=== PATIENT | female | born 1955 | race Caucasian/White ===

== ENCOUNTER → 2016-11-18 | Outpatient (CLI) | payer OTHER ==
[~2016-11-18] MED LIST: CEPH-376 PO; CHOL500015 PO; CRANBERRY PO; CYAN1TAB29 PO; DEXA4TAB PO; DILT240C61 PO; DILT240C77 PO; INSU100I18 SQ; INSU300I SQ; MAGN400T7 PO; OMEP20TA62 PO; ONDA4TAB12 PO; OXYC1TAB7 PO; RAMI5CAP PO; [UNRECOGNIZED DRUG - OTHER] SQ
[2016-11-18 13:46] LABS: HEMATOCRIT 41.4 % (34.6-47.8); HEMOGLOBIN 13.6 g/dL (11.7-16.4); WHITE BLOOD COUNT 7.8 x10^3/uL (3.4-10)
[2016-11-18 13:57] LABS: ASPARTATE AMINO TRANSFERASE 12 U/L (15-37); BLOOD UREA NITROGEN 28 mg/dL (7-18)
== END | disposition home or self-care (01) ==
LOC: STAR 12:39
PROVIDERS: ATTEND Specialist
DX: I45.10 Unspecified right bundle-branch block (principal); Z79.01 Long term (current) use of anticoagulants
CPT/HCPCS: 36415; 80053; 85025; 85610; 85730; 86304; 93005

== ENCOUNTER 2016-11-23 05:58 | Day surgery (SDC) | payer OTHER ==
[2016-11-18 13:23] VITALS: BP 169/91
[~2016-11-23] VITALS: Ht 165.1 cm; Wt 91.5 kg
[2016-11-23] MEDS ORDERED: LACTATED RINGERS 1,000 ML IV SCH (06:32)
[2016-11-23] MEDS ORDERED: LIDOCAINE 1%, 2ML ONE (06:34)
[2016-11-23] MEDS ORDERED: BUPIVACAINE/PF 0.25% ONE (06:40)
[2016-11-23] MEDS ORDERED: HEPARIN 1,000 UNITS/ML, 10ML ONE (06:40)
[2016-11-23] MEDS ORDERED: FENTANYL PF 100 MCG/2ML ONE ×2 (06:41→08:38)
[2016-11-23] MEDS ORDERED: MIDAZOLAM 1 MG/ML, 2ML ONE (06:41)
[2016-11-23] MEDS ORDERED: EPINEPHRINE 1 MG/ML, 1ML ONE (06:41)
[2016-11-23] MEDS ORDERED: PROPOFOL 10 MG/ML, 20ML ONE (06:43)
[2016-11-23] MEDS ORDERED: CEFAZOLIN 1,000 MG ONE ×2 (06:43→06:44)
[2016-11-23] MEDS ORDERED: LIDOCAINE 1%, 2ML SQ PRN (07:00)
[2016-11-23] MEDS ORDERED: GLYCOPYRROLATE 0.4 MG/2 ML, 2ML ONE (07:19)
[2016-11-23] MEDS ORDERED: NEOSTIGMINE 1 MG/ML, 10ML ONE (07:19)
[2016-11-23] MEDS ORDERED: ROCURONIUM 10 MG/ML ONE (07:19)
[2016-11-23] MEDS ORDERED: CEFOTETAN PMX 2GM/50ML 50 ML ONE (07:20)
[2016-11-23] MEDS ORDERED: hydrALAzine 20 MG/ML, 1ML IV PRN (07:30)
[2016-11-23] MEDS ORDERED: MEPERIDINE/PF 25MG/0.5ML IVPush PRN (07:30)
[2016-11-23] MEDS ORDERED: PROMETHAZINE 25 MG/ML, 1ML IV PRN (07:30)
[2016-11-23] MEDS ORDERED: OXYcodone 5 MG/5 ML ORAL.SOL UDC PO PRN (07:30)
[2016-11-23] MEDS ORDERED: LABETALOL 5MG/ML, 20ML IV PRN (07:30)
[2016-11-23] MEDS ORDERED: ONDANSETRON 2MG/ML, 2ML IVPush PRN (07:30)
[2016-11-23] MEDS ORDERED: ONDANSETRON 2MG/ML, 2ML ONE (07:53)
[2016-11-23] MEDS ORDERED: PHENYLEPHRINE 10 MG/ML ONE (08:05)
[2016-11-23] MEDS ORDERED: OXYcodone 5 MG/5 ML ORAL.SOL UDC ONE (08:38)
[2016-11-23] MEDS: FENTANYL PF 100 MCG/2ML IV PRN ×2 (08:42→08:58)
[2016-11-23] MEDS ORDERED: HYDROmorphone 1 MG/ML, 1ML ONE (09:10)
[2016-11-23] MEDS: HYDROmorphone 1 MG/ML, 1ML IV PRN ×2 (09:11→09:19)
[2016-11-23] MEDS ORDERED: KETOROLAC 30 MG/1 ML ONE (09:25)
[2016-11-23] MEDS ORDERED: KETOROLAC 30 MG/1 ML IVPush PRN (09:30)
== END 2016-11-23 11:00 ==
LOC: OUT 05:58
PROVIDERS: ATTEND Specialist
DX: Z45.2 Encounter for adjustment and management of vascular access device (principal); E11.9 Type 2 diabetes mellitus without complications; C56.2 Malignant neoplasm of left ovary; C56.1 Malignant neoplasm of right ovary; Z98.890 Other specified postprocedural states
CPT/HCPCS: 36590; 82962; J0171; J1170; J1885; J2250; J2370; J2405; J2704; J2710; J3010; J3490; J7120; S0074; J0690; J1644

== ENCOUNTER → 2017-02-12 | Outpatient (CLI) | payer OTHER | LOC: RAD 14:41 | PROVIDERS: ATTEND Specialist | DX: M51.36 Other intervertebral disc degeneration, lumbar region (principal); M47.817 Spondylosis without myelopathy or radiculopathy, lumbosacral region; M48.061 Spinal stenosis, lumbar region without neurogenic claudication; M43.16 Spondylolisthesis, lumbar region; N26.1 Atrophy of kidney (terminal); Z85.43 Personal history of malignant neoplasm of ovary | CPT/HCPCS: 72148 ==